=== PATIENT | female | born 1970 | race Caucasian/White ===

== ENCOUNTER 2024-07-08 19:43 | Inpatient (IN) | payer BC, MEDICARE, MEDICAID ==
[~2024-07-08] VITALS: Ht 175.3 cm; Wt 94.5 kg
[2024-07-08 21:53] LABS: BASOPHILS % (AUTO) 0.3 % (0-1); EOSINOPHILS # (AUTO) 0.1 X10'3 (0-0.9); EOSINOPHILS % (AUTO) 0.8 % (0-6); HEMATOCRIT 35.4 % (35.0-45.0); HEMOGLOBIN 12.1 g/dl (12.0-16.0); LYMPHOCYTES % (AUTO) 9.7 % (21-51); MEAN CORPUSCULAR HEMOGLOBIN 30.2 PG (27.0-31.0); MEAN CORPUSCULAR HGB CONC 34.1 g/dL (33.0-36.5); MEAN CORPUSCULAR VOLUME 88.6 FL (78-98); MEAN PLATELET VOLUME 8.3 FL (7.4-10.4); MONOCYTES # (AUTO) 1.3 X10'3 (0-0.9); MONOCYTES % (AUTO) 13.6 % (2-12); NEUTROPHILS # (AUTO) 7.5 X10'3 (1.8-7.7); NEUTROPHILS % (AUTO) 75.6 % (42-75); PLATELET COUNT 286 X10'3 (140-440); RED BLOOD COUNT 3.99 X10'6 (4.20-5.60); RED CELL DISTRIBUTION WIDTH 13.8 % (11.5-14.5); WHITE BLOOD COUNT 9.9 X10'3 (4.5-11.0)
[2024-07-08 22:06] LABS: ALANINE AMINOTRANSFERASE 36 U/L (12-78); ALBUMIN 2.5 G/DL (3.4-5.0); ALBUMIN/GLOBULIN RATIO 0.6 (1.1-1.5); ALKALINE PHOSPHATASE 106 IU/L (46-116); ANION GAP 7 (8-16); ASPARTATE AMINO TRANSFERASE 20 U/L (10-37); BILIRUBIN,TOTAL 0.5 MG/DL (0.1-1.0); BLOOD UREA NITROGEN 11 MG/DL (7-18); BUN/CREATININE RATIO 14.9 (10.0-20.0); CALCIUM 8.1 MG/DL (8.5-10.1); CHLORIDE 106 MMOL/L (99-107); CREATININE 0.74 MG/DL (0.40-0.90); GLUCOSE 105 MG/DL (70-104); POTASSIUM 3.5 MMOL/L (3.5-5.1); SODIUM 141 MMOL/L (135-145); TOTAL PROTEIN 6.5 G/DL (6.4-8.2); eCRCL 91 ML/MIN; eGFR 82 ML/MIN
[2024-07-08] MEDS ORDERED: magnesium sulf-water 2g/50mL 50 ML IV PRN (23:20)
[2024-07-08] MEDS ORDERED: HYDROcodone/acetaminophen 10/325mg tab PO PRN (23:20)
[2024-07-08] MEDS ORDERED: potassium Cl 40MEQ/1/2NS 520ml 520 ML IV PRN (23:20)
[2024-07-08] MEDS ORDERED: acetaminophen 325mg tablet PO PRN (23:20)
[2024-07-08] MEDS ORDERED: potassium Cl 20 mEq SR tablet PO PRN (23:20)
[2024-07-08] MEDS ORDERED: mag hydrox/Alum hydrox/simeth 30ml oral suspension PO PRN (23:20)
[2024-07-08] MEDS ORDERED: magnesium Cl slow-release 64mg tablet PO PRN (23:20)
[2024-07-08] MEDS ORDERED: HYDROcodone/acetaminophen 5mg/325mg tablet PO PRN (23:20)
[2024-07-08] MEDS ORDERED: magnesium hydroxide 30ml (MOM) UD suspension PO PRN (23:20)
[2024-07-08] MEDS ORDERED: magnesium sulf-water 4G/100mL 100 ML IV PRN (23:20)
[2024-07-09] VITALS (16 sets, daily range): BP systolic 118–159; BP diastolic 47–79; PULSE 46–89; RESP 14–23; TEMP 98.2; O2SAT 92–100
[2024-07-09 00:01] LABS: PRO BRAIN NATRIURETIC PEPTIDE 452 PG/ML (0-125)
[2024-07-09 00:03] LABS: HEMOGLOBIN A1C 5.5 % (4.5-6.2)
[2024-07-09] MEDS: normal saline 1000ml 1,000 ML IV SCH (01:11)
[2024-07-09] MEDS: ondansetron/PF 4mg/2ml inj IV PRN (02:27)
[2024-07-09] MEDS: acetaminophen 325mg tablet PO PRN (02:39)
[2024-07-09 02:44] LABS: BASOPHILS % (AUTO) 0.3 % (0-1); EOSINOPHILS # (AUTO) 0.1 X10'3 (0-0.9); EOSINOPHILS % (AUTO) 1.1 % (0-6); HEMATOCRIT 37.2 % (35.0-45.0); HEMOGLOBIN 12.4 g/dl (12.0-16.0); LYMPHOCYTES # (AUTO) 1.3 X10'3 (1.1-4.8); MEAN CORPUSCULAR HEMOGLOBIN 29.4 PG (27.0-31.0); MEAN CORPUSCULAR HGB CONC 33.3 g/dL (33.0-36.5); MEAN CORPUSCULAR VOLUME 88.2 FL (78-98); MEAN PLATELET VOLUME 8.5 FL (7.4-10.4); MONOCYTES # (AUTO) 1.5 X10'3 (0-0.9); MONOCYTES % (AUTO) 13.4 % (2-12); NEUTROPHILS # (AUTO) 8.1 X10'3 (1.8-7.7); NEUTROPHILS % (AUTO) 73.2 % (42-75); PLATELET COUNT 309 X10'3 (140-440); RED BLOOD COUNT 4.22 X10'6 (4.20-5.60); RED CELL DISTRIBUTION WIDTH 13.7 % (11.5-14.5)
[2024-07-09 02:52] LABS: PROTHROMBIN TIME 10.8 SECONDS (9.0-12.0)
[2024-07-09 02:58] LABS: BILIRUBIN,URINE NEGATIVE (Neg); CLARITY,URINE CLOUDY (Clear); COLOR,URINE YELLOW (Yellow); GLUCOSE, URINE NEGATIVE (Neg); KETONES,URINE 15 mg/dl (Neg); LEUKOCYTE ESTERASE ,URINE SMALL (Neg); OCCULT BLOOD,URINE LARGE (Neg); PROTEIN,URINE 30 mg/dl (Neg)
[2024-07-09 02:59] LABS: ALBUMIN 2.7 G/DL (3.4-5.0); ANION GAP 7 (8-16); BLOOD UREA NITROGEN 9 MG/DL (7-18); BUN/CREATININE RATIO 10.8 (10.0-20.0); CALCIUM 8.2 MG/DL (8.5-10.1); CHLORIDE 106 MMOL/L (99-107); CHOLESTEROL 130 MG/DL (0-200); CREATININE 0.83 MG/DL (0.40-0.90); GLUCOSE 99 MG/DL (70-104); HDL CHOLESTEROL 44 MG/DL (35-60); LDL CHOLESTEROL 64 MG/DL (50-100); MAGNESIUM 1.9 MG/DL (1.5-2.4); PHOSPHORUS 2.7 MG/DL (2.3-4.5); POTASSIUM 3.5 MMOL/L (3.5-5.1); SODIUM 142 MMOL/L (135-145); TOTAL CARBON DIOXIDE 28.7 MMOL/L (24-32); TRIGLYCERIDES 102 MG/DL (20-135); eCRCL 81 ML/MIN; eGFR 72 ML/MIN
[2024-07-09 03:04] LABS: NITRITES, URINE NEGATIVE (Neg); UA COLLECTION TYPE NON-SPECIFIED
[2024-07-09 03:05] LABS: BACTERIA,URINE 2+ /HPF (Neg); RBC,URINE 20-50 /HPF (0-2); SQUAMOUS EPITHELIAL CELL,UR FEW /LPF (FEW)
[2024-07-09] MEDS ORDERED: METO10TA3 PO (03:19)
[2024-07-09] MEDS ORDERED: DICL20GE TOP (03:19)
[2024-07-09] MEDS ORDERED: ONDA-245 PO (03:19)
[2024-07-09] MEDS ORDERED: OXYB-58 PO (03:19)
[2024-07-09] MEDS ORDERED: DICL20GE (03:19)
[2024-07-09] MEDS ORDERED: LORA10TA7 PO (03:19)
[2024-07-09] MEDS ORDERED: ADV50100 IH (03:19)
[2024-07-09] MEDS ORDERED: LORA-269 (03:19)
[2024-07-09] MEDS ORDERED: PANT40TA54 PO (03:19)
[2024-07-09] MEDS ORDERED: CELE-148 PO (03:19)
[2024-07-09] MEDS: HYDROmorphone inj. 0.5 MG/0.5 ML DISP.SYRIN IV PRN (06:54)
[2024-07-09] MEDS: K and/or MAG REPLACEMENT MC SCH (07:21)
[2024-07-09] MEDS: docusate sod 100mg capsule PO SCH (07:32)
[2024-07-09] MEDS: pantoprazole 40mg Tablet.DR PO SCH (07:32)
[2024-07-09] MEDS: heparin, porcine 5000 units/ml vial SQ SCH (07:32)
[2024-07-09] MEDS: CefTRIAXone/D5W-Rocephin 1gm 50 ML IV SCH (07:32)
[2024-07-09] MEDS: HYDROmorphone/PF 0.2 MG/ML SYRINGE IV PRN (12:59)
[2024-07-09] MEDS ORDERED: ceFAZolin 2gm in dextrose, iso 100 ML IV ONE (15:15)
[2024-07-09] MEDS ORDERED: proCHLORperazine 10 MG/2 ml inj IV PRN (15:20)
[2024-07-09] MEDS ORDERED: ondansetron/PF 4mg/2ml inj IV PRN (15:20)
[2024-07-09] MEDS ORDERED: morphine 2 MG/ML inj. syringe IV PRN (15:20)
[2024-07-09] MEDS ORDERED: meperidine/PF 25mg/ml syringe IV PRN ×3 (15:20)
[2024-07-09] MEDS ORDERED: morphine 4 MG/ML inj SYRINge IV PRN (15:20)
[2024-07-09] MEDS ORDERED: iohexol 300 MG/1 ML 50ml polymer ONE (15:29)
[2024-07-09] MEDS ORDERED: sevoflurane 250ml liquid IH ONE (15:39)
[2024-07-09] MEDS ORDERED: midazolam 1 mg/ML 2ml injection ONE (15:44)
[2024-07-09] MEDS ORDERED: fentaNYL/PF 50MCG/1 ML 2ML syringe ONE (15:44)
[2024-07-09] MEDS ORDERED: propofol inj 20 ML IV ONE (16:04)
[2024-07-09] MEDS ORDERED: dexamethasone sod phosphate 4mg/ml inj. ONE (16:04)
[2024-07-09] MEDS ORDERED: ondansetron/PF 4mg/2ml inj ONE (16:04)
[2024-07-09] MEDS ORDERED: phenazopyridine 100mg tablet PO PRN (16:20)
[2024-07-09] MEDS: ceFAZolin 2gm in dextrose, iso 50 ML IV ONE (17:40)
[2024-07-09] MEDS: ringers solution, lacted 1,000 ML IV SCH (17:41)
[2024-07-09] MEDS: tamsulosin 0.4mg capsule PO SCH (20:08)
[2024-07-10 06:00] VITALS: BP 125/69; PULSE 50; RESP 18; TEMP 98.5; O2SAT 97
[2024-07-10 06:11] LABS: BASOPHILS % (AUTO) 0.1 % (0-1); EOSINOPHILS % (AUTO) 0 % (0-6); HEMATOCRIT 36.1 % (35.0-45.0); LYMPHOCYTES # (AUTO) 0.7 X10'3 (1.1-4.8); MEAN CORPUSCULAR HEMOGLOBIN 29.2 PG (27.0-31.0); MEAN CORPUSCULAR HGB CONC 33.3 g/dL (33.0-36.5); MEAN CORPUSCULAR VOLUME 87.8 FL (78-98); MEAN PLATELET VOLUME 8.4 FL (7.4-10.4); MONOCYTES # (AUTO) 0.6 X10'3 (0-0.9); MONOCYTES % (AUTO) 7.9 % (2-12); NEUTROPHILS # (AUTO) 6.7 X10'3 (1.8-7.7); PLATELET COUNT 322 X10'3 (140-440); RED BLOOD COUNT 4.11 X10'6 (4.20-5.60); RED CELL DISTRIBUTION WIDTH 13.8 % (11.5-14.5); WHITE BLOOD COUNT 8.1 X10'3 (4.5-11.0)
[2024-07-10 06:25] LABS: PROTHROMBIN TIME 10.9 SECONDS (9.0-12.0)
[2024-07-10 06:34] LABS: ALBUMIN 2.1 G/DL (3.4-5.0); ANION GAP 8 (8-16); BLOOD UREA NITROGEN 9 MG/DL (7-18); BUN/CREATININE RATIO 13.6 (10.0-20.0); CALCIUM 8.7 MG/DL (8.5-10.1); CHLORIDE 107 MMOL/L (99-107); CREATININE 0.66 MG/DL (0.40-0.90); GLUCOSE 132 MG/DL (70-104); MAGNESIUM 2.1 MG/DL (1.5-2.4); PHOSPHORUS 3.1 MG/DL (2.3-4.5); POTASSIUM 3.6 MMOL/L (3.5-5.1); SODIUM 142 MMOL/L (135-145); TOTAL CARBON DIOXIDE 26.8 MMOL/L (24-32); eCRCL 102 ML/MIN; eGFR > 90 ML/MIN
[2024-07-10] MEDS: OXYBUTYNIN CHLORIDE 5 MG PO SCH (08:00)
[2024-07-10 10:00] VITALS: BP 119/61; PULSE 72; RESP 17; TEMP 97.7; O2SAT 95
[2024-07-10 18:30] VITALS: BP 105/59; PULSE 60; RESP 16; TEMP 98.5; O2SAT 97
[2024-07-10] MEDS: metoclopramide 10mg tablet PO SCH (20:48)
[2024-07-10 22:00] VITALS: BP 118/76; PULSE 71; RESP 18; TEMP 97.8; O2SAT 96
[2024-07-11 06:00] VITALS: BP 119/70; PULSE 75; RESP 16; TEMP 97.7; O2SAT 91
[2024-07-11 07:10] LABS: BASOPHILS % (AUTO) 0.4 % (0-1); EOSINOPHILS # (AUTO) 0.2 X10'3 (0-0.9); EOSINOPHILS % (AUTO) 2.1 % (0-6); HEMATOCRIT 31.6 % (35.0-45.0); HEMOGLOBIN 10.7 g/dl (12.0-16.0); LYMPHOCYTES # (AUTO) 2.2 X10'3 (1.1-4.8); LYMPHOCYTES % (AUTO) 28.3 % (21-51); MEAN CORPUSCULAR HEMOGLOBIN 29.6 PG (27.0-31.0); MEAN CORPUSCULAR HGB CONC 33.9 g/dL (33.0-36.5); MEAN CORPUSCULAR VOLUME 87.4 FL (78-98); MEAN PLATELET VOLUME 8.1 FL (7.4-10.4); MONOCYTES # (AUTO) 0.9 X10'3 (0-0.9); NEUTROPHILS # (AUTO) 4.6 X10'3 (1.8-7.7); NEUTROPHILS % (AUTO) 58.2 % (42-75); PLATELET COUNT 366 X10'3 (140-440); RED BLOOD COUNT 3.62 X10'6 (4.20-5.60); RED CELL DISTRIBUTION WIDTH 13.6 % (11.5-14.5); WHITE BLOOD COUNT 7.9 X10'3 (4.5-11.0)
[2024-07-11 07:25] LABS: PROTHROMBIN TIME 10.8 SECONDS (9.0-12.0)
[2024-07-11 07:41] LABS: ALBUMIN 1.9 G/DL (3.4-5.0); ANION GAP 7 (8-16); BLOOD UREA NITROGEN 14 MG/DL (7-18); CALCIUM 8.2 MG/DL (8.5-10.1); CHLORIDE 109 MMOL/L (99-107); CREATININE 0.61 MG/DL (0.40-0.90); GLUCOSE 95 MG/DL (70-104); MAGNESIUM 1.9 MG/DL (1.5-2.4); PHOSPHORUS 3.3 MG/DL (2.3-4.5); POTASSIUM 3.4 MMOL/L (3.5-5.1); SODIUM 143 MMOL/L (135-145); TOTAL CARBON DIOXIDE 26.9 MMOL/L (24-32); eCRCL 110 ML/MIN; eGFR > 90 ML/MIN
[2024-07-11 10:00] VITALS: BP 143/87; PULSE 68; RESP 16; TEMP 97.4; O2SAT 97
[2024-07-11] MEDS: potassium Cl 20 mEq SR tablet PO PRN (15:56)
[2024-07-11] MEDS ORDERED: CIPR-202 PO (16:37)
== END 2024-07-11 17:15 | disposition home or self-care (01) | DRG 661 ==
LOC: ER 19:44 → ED HOLD 23:34 → ORTHO 4S 07-09 17:25
PROVIDERS: ADMIT Surgery; ATTEND Family Medicine
PROC: 0T778DZ Dilation of Left Ureter with Intraluminal Device, Via Natural or Artificial Opening Endoscopic (ICD-10-PCS; 2024-07-09)
PROC: BT1F1ZZ Fluoroscopy of Left Kidney, Ureter and Bladder using Low Osmolar Contrast (ICD-10-PCS; principal; 2024-07-09 15:39)
DX: N13.6 Pyonephrosis (principal); E66.9 Obesity, unspecified; K21.9 Gastro-esophageal reflux disease without esophagitis; G47.00 Insomnia, unspecified; Z98.84 Bariatric surgery status; Z88.2 Allergy status to sulfonamides; Z88.5 Allergy status to narcotic agent; Z68.30 Body mass index [BMI] 30.0-30.9, adult
CPT/HCPCS: 99285; Z7506; 36415; 70450; 76000; 80048; 80053; 80061; 81001; 82948; 83036; 83605; 83735; 83880; 84100; 84145; 85025; 85610; 87040; 87081; 87088; 93005; 97116; 97161; 97530; A4618; A6258; C1758; C1769; C2617; G0378; J0690; J0696; J1100; J1171; J1644; J2003; J2250; J2405; J2704; J3010; J7030; J7120; Q9967